=== PATIENT | male | born 1990 | race Caucasian/White ===

== ENCOUNTER 2021-10-10 21:38 | Emergency (ER) | payer OTHER ==
[~2021-10-10] VITALS: Ht 175.3 cm; Wt 72.6 kg
[~2021-10-10 21:38] MED LIST: AZITHROMYCIN 2250 MG PO; CIPRO500 M1 PO; NOHOMEMEDICATIONS; NORCO 5-325 TA1 EACH PO; TORADOL 10 MG T10 MG PO
[2021-10-11 00:18] VITALS: BP 143/85
== END 2021-10-11 00:19 | disposition left against medical advice (07) ==
LOC: M.ERS 21:38
DX: M54.50 Low back pain, unspecified (principal); R10.9 Unspecified abdominal pain; Z53.21 Procedure and treatment not carried out due to patient leaving prior to being seen by health care provider